=== PATIENT | male | born 1970 | race Caucasian/White ===

== ENCOUNTER → 2017-05-06 | Outpatient (REF) | payer MEDICARE ==
[~2017-05-06] MED LIST: /MOXI40TA; /PHEN9TA; ACET500T2; CEFT500T; CEFT500T OR; COLA100C2; DILA100C; DILA100C OR; FLON0.05; NORV5TAB; NORV5TAB OR; PAIN325T OR; PHEN60TA; PHEN60TA OR; PHEN64.8; PHEN64.8 OR; THERGRAN; ZITH500T
[2017-05-06 19:39] LABS: PHENOBARBITAL LEVEL 33.3 UG/ML (15.0-40.0)
[2017-05-06 22:02] LABS: FOLATE > 24.0 NG/ML (>5.4)
== END ==
LOC: M LAB REF 17:07
PROVIDERS: ATTEND Internal Medicine
DX: G40.301 Generalized idiopathic epilepsy and epileptic syndromes, not intractable, with status epilepticus (principal); G11.1 Early-onset cerebellar ataxia

== ENCOUNTER → 2018-02-16 | Outpatient (REF) | payer MEDICARE, MEDICAID ==
[2018-02-16 13:04] LABS: PHENOBARBITAL LEVEL 35.9 UG/ML (15.0-40.0)
[2018-02-17 14:44] LABS: FOLATE > 24.0 NG/ML (>5.4)
== END ==
LOC: M LAB REF 12:12
DX: G40.301 Generalized idiopathic epilepsy and epileptic syndromes, not intractable, with status epilepticus (principal); Z79.899 Other long term (current) drug therapy
CPT/HCPCS: 80185

== ENCOUNTER → 2019-01-14 | Outpatient (REF) | payer MEDICARE, MEDICAID ==
[2019-01-14 18:17] LABS: PHENOBARBITAL LEVEL 39.3 UG/ML (15.0-40.0); PHENYTOIN (DILANTIN) 23.8 UG/ML (10.0-20.0)
== END ==
LOC: M LAB REF 17:26
PROVIDERS: ATTEND Internal Medicine
DX: Z79.899 Other long term (current) drug therapy (principal); G40.301 Generalized idiopathic epilepsy and epileptic syndromes, not intractable, with status epilepticus

== ENCOUNTER → 2019-05-25 | Outpatient (REF) | payer MEDICARE, MEDICAID ==
[~2019-05-25] MED LIST changes: -/MOXI40TA; -/PHEN9TA; +AVEL1TAB2; +PHEN1TAB26
[2019-05-25 19:20] LABS: PHENOBARBITAL LEVEL 36.7 UG/ML (15.0-40.0); PHENYTOIN (DILANTIN) 18.2 UG/ML (10.0-20.0)
[2019-05-25 19:29] LABS: FOLATE > 24.0 NG/ML (>5.4)
== END ==
LOC: M LAB REF 18:16
PROVIDERS: ATTEND Internal Medicine
DX: G40.301 Generalized idiopathic epilepsy and epileptic syndromes, not intractable, with status epilepticus (principal); Z79.899 Other long term (current) drug therapy

== ENCOUNTER → 2019-09-12 | Outpatient (CLI) | payer MEDICARE, MEDICAID ==
--- NOTE | 2019-09-12 16:30 | REP ---
COOKIE SWALLOW The procedure was performed under the direct supervision of Dr. Erazo. The procedure was performed with the Rebecca Montano from speech pathology present. 5 ml aliquots of nectar, honey, pudding and crushed L an apple sauce consistency barium was administered. With nectar and honey consistency barium there is aspiration. The detailed report of this examination will be provided by speech pathology. 0.7 minutes of fluoroscopy time was utilized for this procedure. Electronically Signed by [place] Gray 09/12/2019 04:20 P Electronically Signed by Ismael Erazo MD 09/12/2019 04:21 P
== END ==
LOC: M ST 14:51
PROVIDERS: ATTEND Otolaryngology
DX: J95.00 Unspecified tracheostomy complication (principal)

== ENCOUNTER → 2019-10-07 | Outpatient (REF) | payer MEDICARE, MEDICAID ==
[2019-10-07 17:20] LABS: PHENOBARBITAL LEVEL 29.8 UG/ML (15.0-40.0); PHENYTOIN (DILANTIN) 17.6 UG/ML (10.0-20.0)
[2019-10-07 17:29] LABS: FOLATE 13.9 NG/ML (>5.4)
== END ==
LOC: M LAB REF 16:42
PROVIDERS: ATTEND Internal Medicine
DX: G40.301 Generalized idiopathic epilepsy and epileptic syndromes, not intractable, with status epilepticus (principal); Z79.899 Other long term (current) drug therapy

== ENCOUNTER → 2020-04-17 | Outpatient (REF) | payer MEDICARE, MEDICAID ==
[2020-04-17 17:04] LABS: PHENOBARBITAL LEVEL 34.1 UG/ML (15.0-40.0); PHENYTOIN (DILANTIN) 23.4 UG/ML (10.0-20.0)
[2020-04-17 17:13] LABS: FOLATE 13.5 NG/ML (>5.4)
== END ==
LOC: M LAB REF 16:12
PROVIDERS: ATTEND Internal Medicine
DX: G40.301 Generalized idiopathic epilepsy and epileptic syndromes, not intractable, with status epilepticus (principal)

== ENCOUNTER → 2021-01-10 | Outpatient (REF) | payer MEDICARE, MEDICAID ==
[2021-01-10 18:05] LABS: PHENOBARBITAL LEVEL 30.2 UG/ML (15.0-40.0); PHENYTOIN (DILANTIN) 17.3 UG/ML (10.0-20.0)
[2021-01-10 18:13] LABS: FOLATE 7.3 NG/ML (>5.4)
== END ==
LOC: M LAB REF 16:35
PROVIDERS: ATTEND Internal Medicine
DX: G40.301 Generalized idiopathic epilepsy and epileptic syndromes, not intractable, with status epilepticus (principal)

== ENCOUNTER → 2021-10-25 | Outpatient (REF) | payer MEDICARE, MEDICAID ==
[2021-10-25 17:35] LABS: PHENOBARBITAL LEVEL 44.4 UG/ML (15.0-40.0); PHENYTOIN (DILANTIN) 32.2 UG/ML (10.0-20.0)
== END ==
LOC: M LAB REF 16:19
PROVIDERS: ATTEND Internal Medicine
DX: G40.301 Generalized idiopathic epilepsy and epileptic syndromes, not intractable, with status epilepticus (principal)